=== PATIENT | female | born 1995 ===

== ENCOUNTER 2025-06-09 05:13 | Day surgery (SDC) | payer OTHER ==
[2025-06-09] MEDS ORDERED: POVIDONE-IODINE 118 ML BOTT TOP ONE (12:45)
[2025-06-09] MEDS ORDERED: MORPHINE SULFATE 4 MG/ML VIAL IV ONE (14:45)
== END 2025-06-09 16:15 | disposition home or self-care (01) ==
LOC: CIR.AMB 05:13
PROVIDERS: ATTEND Obstetrics & Gynecology
DX: D06.9 Carcinoma in situ of cervix, unspecified (principal)